=== PATIENT | male | born 1990 | race Two or more races ===

== ENCOUNTER 2016-11-30 23:02 | Inpatient (IN) | payer MEDICAID ==
[2016-11-30 23:55] VITALS: BP 126/70
[2016-12-01] MEDS ORDERED: Morphine Sulfate 2 mg/mL 1mL Syr IVP PRN (00:19)
[2016-12-01] MEDS ORDERED: Morphine Sulfate 4 mg/mL 1mL Syr IVP PRN (00:19)
[2016-12-01] MEDS ORDERED: D5-0.9%NS 1,000 ML IV SCH (00:30)
[2016-12-01 01:00] LABS: % BASOPHILS 0.5 % (0.0-2.0); % EOSINOPHILS 2.6 % (0.0-5.0); % LYMPHOCYTES 33.5 % (20.0-50.0); % MONOCYTES 10.6 % (2.0-10.0); % NEUTROPHILS 52.8 % (40.0-80.0); HEMATOCRIT 41.1 % (35.0-45.0); MEAN CELL VOLUME 88.3 fl (81-100); MEAN CORPUSCULAR HEMOGLOBIN 30.1 pg (27.0-31.0); MEAN CORPUSCULAR HGB CONC 34.1 pg (28.0-36.0); MEAN PLATELET VOLUME 9.7 fl; NEUTROPHILE ABSOLUTE 3.9 Th/cmm (1.8-8.0); PLATELET COUNT 189 Th/cmm (150-400); RED BLOOD COUNT 4.65 Mil/cmm (3.80-5.10); RED CELL DISTRIBUTION WIDTH 12.7 % (11.5-20.0); WHITE BLOOD COUNT 7.4 Th/cmm (4.8-10.8)
[2016-12-01 01:14] LABS: ALB/GLOB RATIO 1.6 (1.0-1.8); ALKALINE PHOSPHATASE 69 U/L (34-104); ANION GAP 9.6 (7.0-16.0); BILIRUBIN,TOTAL 1.1 mg/dL (0.3-1.0); BUN - UREA NITROGEN 10 mg/dL (7-25); BUN/CREATININE RATIO 11.1; CALCIUM SERUM 9.1 mg/dL (8.6-10.3); CARBON DIOXIDE 28.9 mEq/L (21.0-31.0); CHLORIDE 104 mEq/L (98-107); CREATININE - SERUM 0.9 mg/dL (0.6-1.2); GLUCOSE 92 mg/dL (70-105); POTASSIUM SERUM 3.5 mEq/L (3.5-5.1); SGOT 14 U/L (13-39); SGPT/ALT 19 U/L (7-52); SODIUM SERUM 139 mEq/L (136-145)
[2016-12-01 08:01] LABS: URINE BILIRUBIN NEGATIVE (NEGATIVE); URINE BLOOD NEGATIVE (NEGATIVE); URINE COLOR YELLOW; URINE GLUCOSE (UA) NEGATIVE (NEGATIVE); URINE KETONE NEGATIVE (NEGATIVE); URINE PROTEIN NEGATIVE (NEGATIVE); URINE UROBILINOGEN 0.2 E.U./dL (0.2 - 1.0)
[2016-12-01 08:02] LABS: URINE AMORPHOUS SEDIMENT MANY PHOSPHATES (NONE SEEN); URINE BACTERIA FEW /hpf (NONE SEEN); URINE EPITHELIAL CELLS RARE /lpf (FEW); URINE RBC NONE SEEN /hpf (0-5); URINE WBC 0-2 /hpf (0-5)
[2016-12-01 09:34] LABS: INR 1.02 (0.5-1.4); PROTHROMBIN TIME (TEST) 10.6 SECONDS (9.5-11.5)
--- NOTE | 2016-12-02 00:56 | Consultation ---
INPATIENT GASTROINTESTINAL CONSULTATION REFERRING PHYSICIAN: Dr. Rashid. REASON FOR CONSULTATION: Gallstones. HISTORY OF PRESENT ILLNESS: A 26-year-old male, who came to the hospital with upper abdominal pain associated with nausea and vomiting. No hematemesis or coffee-ground emesis. PAST MEDICAL HISTORY: None. PAST SURGICAL HISTORY: Appendectomy. FAMILY HISTORY: Noncontributory. SOCIAL HISTORY: Denies tobacco, alcohol, or IV drug usage. ALLERGIES: None. CURRENT MEDICATIONS: Tylenol, Ativan, morphine, and Zofran. REVIEW OF SYSTEMS: Notable for the nausea, vomiting, upper abdominal pain. All other systems were otherwise negative. PHYSICAL EXAMINATION: VITAL SIGNS: Temperature 97.7, breathing 17, pulse ox 56, blood pressure 119/64, satting 100%. GENERAL: In no apparent distress. Eyes are anicteric, normal conjunctivae. HEENT: Normocephalic, atraumatic. Moist mucous membranes. NECK: Soft, supple. CHEST: Clear. No effort. CARDIOVASCULAR: Regular rate and rhythm. ABDOMEN: Soft, nondistended, tender epigastrium. No rebound or guarding. SKIN: Warm, dry. EXTREMITIES: Reveal no cyanosis. PSYCHOLOGIC: Alert and oriented x 3. LABORATORY DATA: Showed T-bili 1.1, AST 14, ALT 19, alkaline phosphatase 69. INR is 1.02. CBC within normal limits. Imaging studies are not available. IMPRESSION: A 26-year-old male with elevated LFTs and gallstones. This needs to be confirmed by imaging; therefore, ultrasound recommended, also magnetic resonance cholangiopancreatography should be done to clear the common bile duct. PLAN: 1. Ultrasound and MRCP. 2. Follow LFTs. 3. Cholecystectomy if needed per surgeon. Thank you for allowing me to participate. Please call me if you have any questions. JOB# [id number]
== END 2016-12-01 11:45 | disposition left against medical advice (07) ==
LOC: MSI 23:02 → EDSEX 23:02
PROVIDERS: ADMIT Preventive Medicine Preventive Medicine/Occupational Environmental Medicine; ATTEND Preventive Medicine Preventive Medicine/Occupational Environmental Medicine
DX: K80.80 Other cholelithiasis without obstruction (principal); R11.2 Nausea with vomiting, unspecified; Z90.49 Acquired absence of other specified parts of digestive tract; Z53.21 Procedure and treatment not carried out due to patient leaving prior to being seen by health care provider
CPT/HCPCS: 36415-UA; 80053-TC; 81001-TC; 85025-TC; 85610-TC; 85652-TC; 86141-TC; 87075-90; 87205-90; 93005; J7042